=== PATIENT | female | born 1980 | race Caucasian/White ===

== ENCOUNTER 2022-12-17 18:39 | Emergency (ER) | payer OTHER ==
[~2022-12-17] VITALS: Ht 160 cm; Wt 76.7 kg
--- NOTE | 2022-12-17 19:29 | NUR ---
Dr. Taylor evaluating patient at bedside. MSE in progress.
[2022-12-17] MEDS ORDERED: SULF1TAB48 PO (19:47)
--- NOTE | 2022-12-17 19:52 | NUR ---
Patient discharged to home in stable condition. Written and verbal after care instructions given. Patient verbalizes understanding of instructions. Stressed follow up or return to ER for worsening s/s. Bactrim printed prescription given to patient.
[2022-12-17 19:53] VITALS: BP 115/70; TEMP 98.4; O2SAT 98
== END 2022-12-17 19:54 | disposition home or self-care (01) ==
LOC: ER 18:52
DX: H00.014 Hordeolum externum left upper eyelid (principal); Z79.899 Other long term (current) drug therapy
CPT/HCPCS: A4663